=== PATIENT | female | born 1975 | race Caucasian/White ===

== ENCOUNTER 2017-02-22 07:58 | Emergency (ER) | payer BC, OTHER ==
[~2017-02-22] VITALS: Ht 154.9 cm; Wt 49.5 kg
[~2017-02-22 07:58] MED LIST: CALC500C3 PO; HYDR-3419 PO; HYDR1TAB2 PO; OMEP20CA59 PO; PEDICHW50 PO; SPIR25TA PO
[2017-02-22 08:11] VITALS: TEMP 36.6; Ht 154.9 cm; Wt 49.5 kg
[2017-02-22] MEDS ORDERED: MONT1TAB3 PO (08:37)
[2017-02-22] MEDS ORDERED: LORA-741 PO (08:37)
[2017-02-22] MEDS ORDERED: FENTANYL CITRATE INJ 50 MCG/1 ML 2 ML VIAL IV ONE (09:00)
[2017-02-22 09:58] LABS: URINE APPEARANCE CLEAR (CLEAR); URINE BILIRUBIN NEG (NEG); URINE COLOR YELLOW; URINE EPITHELIAL CELL AUTO >30 /lpf (0-5); URINE NITRITE NEG (NEG); URINE SPECIFIC GRAVITY 1.003 (1.000-1.030); UROBILINOGEN NEG (NEG)
[2017-02-22 10:00] LABS: MANUAL MICROSCOPIC REQUIRED? NO; REVIEW REQ? NO
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
[2017-02-22] MEDS ORDERED: OXYC-57 PO (12:00)
[2017-02-22 12:02] VITALS: BP 116/68; PULSE 95; O2SAT 100
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
[2017-02-22] MEDS ORDERED: PERCOCET HOME PACK PO ONE (13:15)
--- NOTE | 2017-02-22 15:07 | EMERGENCY ROOM VISIT NOTE ---
ED Visit Note First contact with patient: 08:19 Resident Physician Supervision Note: I interviewed and examined the patient. Discussed with Dr. Kenny and agree with findings and plan as documented in the note. Any exceptions or clarifications are listed here: [None] The pt is noted to be in no distress. PE is c/w Dr Kenny's findings. There is no significant acute trauma that requires hospitalization or further intervention. Pt was d/c to care of her family. She requested pain medication and was given percocet HP. She will return to the ED for worsening of symptoms or any medical concerns. Documented By: Nikki Soriano
== END 2017-02-22 12:37 | disposition home or self-care (01) ==
LOC: C.EDB 08:00
DX: M54.5 Low back pain (principal); R51 Headache; Y04.0XXA Assault by unarmed brawl or fight, initial encounter; Z98.51 Tubal ligation status; Z90.49 Acquired absence of other specified parts of digestive tract; F17.210 Nicotine dependence, cigarettes, uncomplicated; Z79.899 Other long term (current) drug therapy